=== PATIENT | female | born 1980 | race Caucasian/White ===

== ENCOUNTER 2016-12-23 02:08 | Emergency (ER) | payer SELFPAY ==
[2016-12-23 02:56] LABS: Blood, Urine Large (Negative); Glucose, Urine (Dipstick) Negative (Negative); Ketone, Urine 15 mg/dL (Negative); Nitrite Negative (Negative); Protein, Urine (Dipstick) 100 mg/dL (Neg-Trace); Urobilinogen 0.2 mg/dL (0.2-1.0)
[2016-12-23 03:01] LABS: #Basophils 0.1 thou/uL (0.0-0.2); #Eosinphils 0.2 thou/uL (0.0-0.7); #Lymphocytes 2.6 thou/uL (1.20-3.40); #Monocytes 0.5 thou/uL (0.11-0.59); #Neutrophils 4.9 thou/uL (1.40-6.50); %Basophils 1.1 % (0.0-1.0); %Eosinophils 1.9 % (0.0-10.0); %Lymphocytes 31.8 % (21.0-51.0); %Monocytes 5.9 % (0.0-10.0); Hematocrit 42.9 % (36.0-47.0); Mean Platelet Volume 7.6 fL (7.4-10.4); White Blood Cell (WBC) Count 8.3 thou/uL (4.8-10.8)
[2016-12-23 03:07] LABS: Methamphetamine Detected (NotDetected)
[2016-12-23 03:08] LABS: Methadone Not Detected (NotDetected)
[2016-12-23 03:10] LABS: Bacteria/HPF Rare-Few HPF (None Seen); Bilirubin Negative (Negative); RBC/HPF 0-3 HPF (0-3); WBC/HPF 0-3 HPF (0-3)
[2016-12-23 03:31] LABS: ALT (SGPT) 7 U/L (0-55); AST (SGOT) 15 U/L (5-34); Alkaline Phosphatase 80 U/L (40-150); Anion Gap 11 mmol/L (10-20); BUN (Urea Nitrogen) 17 mg/dL (7.0-18.7); Bilirubin, Total 0.8 mg/dL (0.2-1.2); Calc. Creatinine Clearance 0 mL/min (70-130); Calcium 9.4 mg/dL (7.8-10.44); Carbon Dioxide 25 mmol/L (22-29); Chloride 107 mmol/L (98-107); Estimated GFR-MDRD 74; Globulin 3.1 g/dL (2.4-3.5); Protein, Total 7.3 g/dL (6.0-8.3)
[2016-12-23 03:39] LABS: Salicylate Less than 5.0 mg/dL (15.0-30.0)
[2016-12-23 04:10] LABS: Acetaminophen Less than 3.0 mcg/mL (10.0-30.0)
[2016-12-23 04:13] LABS: CK (CPK) 117 U/L (29-168)
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
--- NOTE | 2016-12-23 06:11 | PICIS ---
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 not contain payable representative levels of hCG. If is still, suspected, a first morning urine specimen OR a random blood specimen should, be obtained from the patient 48-72 hours later and re-tested. , . (03:12 [facility]) Drug Screen, Urine Collection DT: WedDec 23, 2016 02:59, THC/Cannabinoid Screen Not Detected , Range (NotDetected), Phencyclidine (PCP) Not Detected , Range (NotDetected), Cocaine Metabolite Screen Not Detected , Range (NotDetected), &a-1R&a+25V*p+0X*s4591F*c202B*c15G*c2P*p-0X&a-25V&a+1R Name: Leilani Roman : 1980 F36 MedRec: [id number] AcctNum: [id number] Prepared: WedDec 23, 2016 06:44 by Interface Page 10 of 13 pMD [facility] EMERGENCY RECORD *Methamphetamine Detected - H , Range (NotDetected), Opiate Screen Not Detected , Range (NotDetected), *Amphetamine Detected - H , Range (NotDetected), Benzodiazepine Screen Not Detected , Range (NotDetected), Tricyclic Screen Not Detected , Range (NotDetected), Methadone Not Detected , Range (NotDetected), Barbiturates Screen Not Detected , Range (NotDetected), Oxycodone Screen Not Detected , Range (NotDetected), Propoxyphene Screen Not Detected , Range (NotDetected), Drug Screen Cutoff , Range (), The OzVisionx Profile-V Panel for Qualitative Drugs of Abuse assays are for, presumptive screening testing only. The drug class and detection limits, are as follows: Drug Class Detection Limit Amphetamine , 500 ng/mL* Barbiturates 200 ng/mL , Benzodiazepines 150 ng/mL* Cocaine 150 ng/mL*, Methamphetamine 500 ng/mL* Methadone 200, ng/mL* Opiates 100 ng/mL* Oxycodone , 100 ng/mL PCP 25 ng/mL Propoxyphene , 300 ng/mL Tricyclic Antidepressants 300 ng/mL Cannabinoids (THC) , 50 ng/mL Tests which yield a presumptive positive result must be , tested using a more specific alternate chemical method in order to obtain, a confirmed analytical result. Additional confirmation and identification, may be ordered on a routine basis, if desired. Presumptive positive urines, are held for two weeks. . (03:12 [facility]) CBC with Differential Collection DT: WedDec 23, 2016 02:59, White Blood Cell (WBC) Count 8.3 thou/uL, Range (4.8-10.8), Red Blood Cell (RBC) Count 4.90 mill/uL, Range (4.20-5.40), Hemoglobin 14.0 g/dL, Range (12.0-16.0), Hematocrit 42.9 %, Range (36.0-47.0), Mean Corpuscular Volume 87.4 fl, Range (81.0-99.0), Mean Corpuscular Hemoglobin 28.6 pg, Range (27.0-31.0), Mean Corpuscular HGB CONC 32.7 g/dL, Range (32.0-36.0), *RBC Distribution Width 11.0 - L %, Range (11.5-14.5), Platelet Count 165 thou/uL, Range (130-400), Mean Platelet Volume 7.6 fL, Range (7.4-10.4), %Neutrophils 59.4 %, Range (42.0-75.0), %Lymphocytes 31.8 %, Range (21.0-51.0), %Monocytes 5.9 %, Range (0.0-10.0), %Eosinophils 1.9 %, Range (0.0-10.0), &a-1R&a+25V*p+0X*z8303H*c202B*c15G*c2P*p-0X&a-25V&a+1R Name: Leilani Roman : 1980 F36 MedRec: [id number] AcctNum: [id number] Prepared: WedDec 23, 2016 06:44 by Interface Page 11 of 13 D [facility] EMERGENCY RECORD *%Basophils 1.1 - H %, Range (0.0-1.0), #Neutrophils 4.9 thou/uL, Range (1.40-6.50), #Lymphocytes 2.6 thou/uL, Range (1.20-3.40), #Monocytes 0.5 thou/uL, Range (0.11-0.59), #Eosinphils 0.2 thou/uL, Range (0.0-0.7), #Basophils 0.1 thou/uL, Range (0.0-0.2). (03:12 [facility]) Alcohol Collection DT: WedDec 23, 2016 02:59, Alcohol Less than 10 mg/dL, Range (Less than 10), The pharmacological response to blood alcohol levels may vary from, individual to individual. Negative: Less than 10, mg/dL Toxic: 50 - 100 mg/dL , Depression of ARMATURE WINDER: Greater than 100 mg/dL , Fatalities reported: Greater than 400 mg/dL . (04:59 [facility]) CK (CPK) Collection DT: WedDec 23, 2016 02:59, CK (CPK) 117 U/L, Range (29-168). (04:59 [facility]) Comprehensive Metabolic Panel Collection DT: WedDec 23, 2016 02:59, Sodium 140 mmol/L, Range (136-145), *Potassium 3.3 - L mmol/L, Range (3.5-5.1), Chloride 107 mmol/L, Range (98-107), Carbon Dioxide 25 mmol/L, Range (22-29), Anion Gap 11 mmol/L, Range (10-20), BUN (Urea Nitrogen) 17 mg/dL, Range (7.0-18.7), Creatinine 0.87 mg/dL, Range (0.6-1.1), Estimated GFR-MDRD 74 , Reference Range for Estimated GFR: Greater than 90, mL/min/1.73 m2 NOTE: The MDRD equation has not been validated for use, with the elderly (over 70 years of age), women, patients with, serious comorbid condition or persons with extremes of body size, muscle, mass, or nutritional status. , Glucose 88 mg/dL, Range (70-105), Calcium 9.4 mg/dL, Range (7.8-10.44), Bilirubin, Total 0.8 mg/dL, Range (0.2-1.2), Protein, Total 7.3 g/dL, Range (6.0-8.3), NOTE: Plasma values are generally 0.3 to 0.5 g/dL higher than serum values, due to the presence of fibrinogen. , Albumin 4.2 g/dL, Range (3.5-5.0), Globulin 3.1 g/dL, Range (2.4-3.5), Alb/Glob Ratio 1.4 g/dL, Range (1.2-2.2), Alkaline Phosphatase 80 U/L, Range (40-150), AST (SGOT) 15 U/L, Range (5-34), ALT (SGPT) 7 U/L, Range (0-55). (04:59 [facility]) &a-1R&a+25V*p+0X*z8753G*c202B*c15G*c2P*p-0X&a-25V&a+1R Name: Leilani Roman : 1980 F36 MedRec: [id number] AcctNum: [id number] Prepared: WedDec 23, 2016 06:44 by Interface Page 12 of 13 pMD [facility] EMERGENCY RECORD Drug Screen, Blood Collection DT: WedDec 23, 2016 02:59, *Acetaminophen Less than 3.0 - L mcg/mL, Range (10.0-30.0), Therapeutic Range: 10.0 - 30.0 ug/mL Toxic Range: Possible, toxicity: 150 - 200 ug/mL Probable toxicity: Greater than 200, ug/mL *IMPORTANT TESTING INFORMATION* The half-life of NAC is 2, hours. The total NAC clearance is 5.6 hours for adults and 11 hours for, Newborns. Testing acetaminophen levels prior to a reasonable time frame, for clearance can cause falsely decreased acetaminophen levels. , Alcohol Less than 10 mg/dL, Range (Less than 10), The pharmacological response to blood alcohol levels may vary from, individual to individual. Negative: Less than 10, mg/dL Toxic: 50 - 100 mg/dL , Depression of ARMATURE WINDER: Greater than 100 mg/dL , Fatalities reported: Greater than 400 mg/dL , *Salicylate Less than 5.0 - L mg/dL, Range (15.0-30.0). (04:59 [facility]) Thyroid Stimulating Hormone Collection DT: WedDec 23, 2016 02:59, Thyroid Stimulating Hormone 0.9936 uIU/mL, Range (0.35-4.94). (04:59 [facility]) Milligan: KHADRA=JONAS Barron, Cheryl FISHMAN=MD Maira, Marilyn &a-1R&a+25V*p+0X*p4224A*c202B*c15G*c2P*p-0X&a-25V&a+1R Name: Leilani Roman : 1980 F36 MedRec: [id number] AcctNum: [id number] Prepared: Katheryn Dec 23, 2016 06:44 by Interface Page 13 of 13 pMD [facility]TDD
== END 2016-12-23 05:57 ==
LOC: NAV ERS 02:08
DX: R44.0 Auditory hallucinations (principal); R44.1 Visual hallucinations; F15.10 Other stimulant abuse, uncomplicated; E03.9 Hypothyroidism, unspecified; E78.5 Hyperlipidemia, unspecified; E78.1 Pure hyperglyceridemia; F90.9 Attention-deficit hyperactivity disorder, unspecified type; F41.9 Anxiety disorder, unspecified; F17.210 Nicotine dependence, cigarettes, uncomplicated; Z79.899 Other long term (current) drug therapy
CPT/HCPCS: 80053; 80306; 80307; 81003; 81015; 81025; 82550; 84443; 85025; 99285